=== PATIENT | female | born 1945 | race Two or more races ===

== ENCOUNTER 2022-11-16 21:57 | Inpatient (IN) | payer OTHER ==
[~2022-11-16] VITALS: Ht 152.4 cm; Wt 48.1 kg
[2022-11-16] MEDS ORDERED: SYNTHROID75 MCG PO (22:07)
[2022-11-16] MEDS ORDERED: DILTIAZEM 24HR240 MG PO (22:07)
[2022-11-17 05:04] LABS: HEMATOCRIT 34.5 % (36.0-45.00); HEMOGLOBIN 11.7 g/dL (12.0-15.00); MEAN CELL VOLUME 83.2 fL (80.00-100.00); MEAN CORPUSCULAR HEMOGLOBIN 28.1 pg (27.00-32.0); MEAN CORPUSCULAR HGB CONC 33.8 g/dl (32.0-36.0); PLATELET COUNT 487 K/uL (150-450); RED BLOOD COUNT 4.15 M/uL (4.00-6.00)
[2022-11-17 05:21] LABS: ALBUMIN 3.1 gm/dL (3.4-5.0); BILIRUBIN TOTAL 0.35 mg/dL (0.3-1.2); CALCIUM 8.9 mg/dL (8.5-10.1); CREATININE SERUM 0.39 mg/dL (0.55-1.02); GFR 160.21; GLOBULINA 3.9 G/DL (2.4-3.5); POTASSIUM 3.27 mEq/L (3.5-5.1)
[2022-11-17 06:03] LABS: PH,URINE 6.5 (5.0-8.0); URINE APPEARANCE Clear; URINE BILIRRUBIN Negative (NEGATIVE); URINE BLOOD Negative; URINE COLOR Yellow; URINE GLUCOSE Negative (NEGATIVE); URINE LEUKOCYTE Small; URINE NITRATE Negative; URINE PROTEIN 30 (NEGATIVE)
[2022-11-17 06:08] LABS: URINE BACTERIA 105.1 uL (0.0-1933); URINE EPITHELIAL CELLS 29.1 uL (0.0-38.8); URINE RBC 6.9 uL (0.0-20.8); URINE WBC 53.2 uL (0.0-23.2)
[2022-11-17 07:03] LABS: URINE CRYSTALS NEGATIVE /HPF
[2022-11-17 07:54] LABS: ABG PH 7.433 (7.35-7.45); ABG PO2 70.7 mmHg (80-100); ABG pCO2 44.9 mmHg (35-45); BASE EXCESS 4.4 mmol/l; BICARBONATE 29.4 mmol/l (23-25); SaO2 94.7 %; Tco2 30.8 mmol/l; allen test SATISFACTORY; puncture site RADIAL LEFT
[2022-11-17 07:55] LABS: o2 28 %
[2022-11-17 10:24] LABS: PARTIAL THROMBOPLASTIN TIME 29.1 SECONDS (22.0-34.0); PROTHROMBIN TIME 10.5 SECONDS (9.0-11.5)
[2022-11-17 12:22] LABS: ABG PH 7.429 (7.35-7.45); ABG PO2 86.1 mmHg (80-100); ABG pCO2 44.3 mmHg (35-45); BASE EXCESS 3.7 mmol/l; BICARBONATE 28.7 mmol/l (23-25); SaO2 96.9 %; Tco2 30.1 mmol/l; allen test SATISFACTORY; puncture site RADIAL LEFT
[2022-11-17 12:23] LABS: o2 60 %
[2022-11-17 17:49] LABS: ALBUMIN 2.6 gm/dL (3.4-5.0)
[2022-11-17 18:14] LABS: PLEURAL FLUID APPEARANCE HAZY; PLEURAL FLUID COLOR YELLOW
[2022-11-17 18:51] LABS: ABG PH 7.451 (7.35-7.45); ABG PO2 73.3 mmHg (80-100); ABG pCO2 45.9 mmHg (35-45); BASE EXCESS 6.2 mmol/l; BICARBONATE 31.2 mmol/l (23-25); SaO2 95.6 %; Tco2 32.6 mmol/l; allen test SATISFACTORY; o2 60 %; puncture site RADIAL RIGHT
[2022-11-17 19:12] LABS: POLYMORPHONUCLEAR 25 %
[2022-11-17 19:13] LABS: MONONUCLEAR 75 %
[2022-11-18 07:24] LABS: URINE APPEARANCE Clear; URINE BILIRRUBIN Negative (NEGATIVE); URINE BLOOD Moderate; URINE COLOR Yellow; URINE GLUCOSE Negative (NEGATIVE); URINE LEUKOCYTE Large; URINE NITRATE Negative; URINE PROTEIN Trace (NEGATIVE); URINE UROBILINOGEN 0.2 E.U./dl
[2022-11-18 07:31] LABS: URINE BACTERIA 374.7 uL (0.0-1933); URINE EPITHELIAL CELLS 7.5 uL (0.0-38.8); URINE RBC 61.5 uL (0.0-20.8); URINE WBC 266.4 uL (0.0-23.2)
[2022-11-18 07:39] LABS: HEMATOCRIT 35.4 % (36.0-45.00); HEMOGLOBIN 11.8 g/dL (12.0-15.00); MEAN CELL VOLUME 82.7 fL (80.00-100.00); MEAN CORPUSCULAR HEMOGLOBIN 27.6 pg (27.00-32.0); MEAN CORPUSCULAR HGB CONC 33.3 g/dl (32.0-36.0); RED BLOOD COUNT 4.28 M/uL (4.00-6.00); RED CELL DISTRIBUTION WIDTH 13.7 % (11.5-14.5)
[2022-11-18 07:40] LABS: PLATELET COUNT 524 K/uL (150-450)
[2022-11-18 08:05] LABS: ALBUMIN 2.7 gm/dL (3.4-5.0); BILIRUBIN TOTAL 0.51 mg/dL (0.3-1.2); BILIRUBIN,CONJUGATED 0.16 mg/dL (0.0-0.2); BILIRUBIN,UNCONJUGATED 0.35 mg/dL (0.0-0.6); CALCIUM 8.8 mg/dL (8.5-10.1); CHOL HDL RATIO 2.6 (0-5.0); CREATININE SERUM 0.5 mg/dL (0.55-1.02); GFR 120.28; GLOBULINA 2.9 G/DL (2.4-3.5); MAGNESIUM 2.2 mg/dL (1.8-2.4); PHOSPHOROUS 2.9 mg/dL (2.5-4.9); POTASSIUM 3.54 mEq/L (3.5-5.1); T4 FREE 1.42 NG/ML (0.76-1.46); TOTAL PROTEIN 5.6 gm/dL (6.4-8.2); TSH 1.26 uIU/mL (0.358-3.74)
[2022-11-18 08:12] LABS: C-REACTIVE PROTEIN 7.91 MG/DL (0.00-0.29)
[2022-11-18 08:28] LABS: INR 1.03; PARTIAL THROMBOPLASTIN TIME 29.3 SECONDS (22.0-34.0); PROTHROMBIN TIME 10.8 SECONDS (9.0-11.5)
[2022-11-18 08:29] LABS: ERYTHROCYTE SEDIMENTATION RATE 39 mm/hr
[2022-11-18 10:00] LABS: ABG PH 7.445 (7.35-7.45); ABG PO2 65.3 mmHg (80-100); ABG pCO2 43.6 mmHg (35-45); BASE EXCESS 4.6 mmol/l; BICARBONATE 29.3 mmol/l (23-25); SaO2 93.7 %; Tco2 30.6 mmol/l
[2022-11-18 10:01] LABS: allen test SATISFACTORY; o2 100 %; puncture site RADIAL LEFT
[2022-11-18 11:17] LABS: ABG PH 7.446 (7.35-7.45); ABG PO2 72.8 mmHg (80-100); BASE EXCESS 0.6 mmol/l; BICARBONATE 24.3 mmol/l (23-25); SaO2 95.2 %; Tco2 25.4 mmol/l
[2022-11-18 11:18] LABS: allen test SATISFACTORY; o2 36 %; puncture site RADIAL LEFT
[2022-11-18 11:30] LABS: PLATELET ESTIMATE INCREASED (NORMAL)
[2022-11-19 09:11] LABS: PROCALCITONIN 0.097 ng/ml (0.020-0.080)
[2022-11-20 06:53] LABS: HEMATOCRIT 33.8 % (36.0-45.00); HEMOGLOBIN 11.1 g/dL (12.0-15.00); MEAN CELL VOLUME 83.7 fL (80.00-100.00); MEAN CORPUSCULAR HEMOGLOBIN 27.6 pg (27.00-32.0); PLATELET COUNT 428 K/uL (150-450); RED BLOOD COUNT 4.03 M/uL (4.00-6.00); RED CELL DISTRIBUTION WIDTH 14.2 % (11.5-14.5)
[2022-11-20 07:11] LABS: ALBUMIN 2.3 gm/dL (3.4-5.0); BILIRUBIN TOTAL 0.51 mg/dL (0.3-1.2); CALCIUM 7.7 mg/dL (8.5-10.1); CREATININE SERUM 0.4 mg/dL (0.55-1.02); GFR 155.6; GLOBULINA 2.5 G/DL (2.4-3.5); MAGNESIUM 2.2 mg/dL (1.8-2.4); PHOSPHOROUS 2.8 mg/dL (2.5-4.9); POTASSIUM 3.18 mEq/L (3.5-5.1); TOTAL PROTEIN 4.8 gm/dL (6.4-8.2)
[2022-11-20 07:44] LABS: C-REACTIVE PROTEIN 4.41 MG/DL (0.00-0.29)
[2022-11-21 10:45] LABS: CREATININE SERUM 0.51 mg/dL (0.55-1.02); GFR 117.56; MAGNESIUM 2.2 mg/dL (1.8-2.4); POTASSIUM 3.04 mEq/L (3.5-5.1)
[2022-11-22 08:27] LABS: HEMATOCRIT 27.9 % (36.0-45.00); HEMOGLOBIN 9.8 g/dL (12.0-15.00); MEAN CELL VOLUME 82.1 fL (80.00-100.00); MEAN CORPUSCULAR HEMOGLOBIN 28.7 pg (27.00-32.0); PLATELET COUNT 399 K/uL (150-450); RED CELL DISTRIBUTION WIDTH 14.3 % (11.5-14.5)
[2022-11-22 08:34] LABS: ALBUMIN 2.2 gm/dL (3.4-5.0); BILIRUBIN TOTAL 0.24 mg/dL (0.3-1.2); CREATININE SERUM 0.56 mg/dL (0.55-1.02); GFR 105.53; GLOBULINA 2.5 G/DL (2.4-3.5); MAGNESIUM 2.3 mg/dL (1.8-2.4); POTASSIUM 3.75 mEq/L (3.5-5.1); TOTAL PROTEIN 4.7 gm/dL (6.4-8.2)
[2022-11-22 09:00] LABS: ERYTHROCYTE SEDIMENTATION RATE 14 mm/hr
[2022-11-23 06:31] LABS: HEMATOCRIT 31.2 % (36.0-45.00); HEMOGLOBIN 10.4 g/dL (12.0-15.00); MEAN CELL VOLUME 83.8 fL (80.00-100.00); MEAN CORPUSCULAR HGB CONC 33.4 g/dl (32.0-36.0); PLATELET COUNT 399 K/uL (150-450); RED BLOOD COUNT 3.72 M/uL (4.00-6.00); RED CELL DISTRIBUTION WIDTH 13.9 % (11.5-14.5)
[2022-11-23 23:11] LABS: PH,URINE 7.5 (5.0-8.0); URINE APPEARANCE Clear; URINE BILIRRUBIN Negative (NEGATIVE); URINE BLOOD Negative; URINE COLOR Yellow; URINE GLUCOSE Negative (NEGATIVE); URINE LEUKOCYTE Negative; URINE NITRATE Negative; URINE PROTEIN Negative (NEGATIVE); URINE UROBILINOGEN 0.2 E.U./dl
[2022-11-23 23:24] LABS: URINE BACTERIA 8.4 uL (0.0-1933)
[2022-11-23 23:26] LABS: URINE EPITHELIAL CELLS 0.7 uL (0.0-38.8); URINE RBC 0.7 uL (0.0-20.8)
[2022-11-24 07:20] LABS: CALCIUM 7.8 mg/dL (8.5-10.1); CREATININE SERUM 0.42 mg/dL (0.55-1.02); GFR 147.08; POTASSIUM 3.03 mEq/L (3.5-5.1)
[2022-11-25 08:24] LABS: CALCIUM 7.9 mg/dL (8.5-10.1); CREATININE SERUM 0.35 mg/dL (0.55-1.02); GFR 181.53; MAGNESIUM 2.3 mg/dL (1.8-2.4); PHOSPHOROUS 2.1 mg/dL (2.5-4.9); POTASSIUM 3.62 mEq/L (3.5-5.1)
[2022-11-25 09:14] LABS: HEMATOCRIT 31.8 % (36.0-45.00); HEMOGLOBIN 10.6 g/dL (12.0-15.00); MEAN CORPUSCULAR HEMOGLOBIN 28.1 pg (27.00-32.0); MEAN CORPUSCULAR HGB CONC 33.4 g/dl (32.0-36.0); PLATELET COUNT 391 K/uL (150-450); RED BLOOD COUNT 3.79 M/uL (4.00-6.00); RED CELL DISTRIBUTION WIDTH 14.1 % (11.5-14.5)
[2022-11-25 09:47] LABS: INR 0.98; PARTIAL THROMBOPLASTIN TIME 31.7 SECONDS (22.0-34.0); PROTHROMBIN TIME 10.3 SECONDS (9.0-11.5)
[2022-11-26 06:50] LABS: HEMATOCRIT 30.6 % (36.0-45.00); HEMOGLOBIN 10.1 g/dL (12.0-15.00); MEAN CELL VOLUME 84.3 fL (80.00-100.00); MEAN CORPUSCULAR HEMOGLOBIN 27.9 pg (27.00-32.0); MEAN CORPUSCULAR HGB CONC 33.1 g/dl (32.0-36.0); PLATELET COUNT 371 K/uL (150-450); RED BLOOD COUNT 3.63 M/uL (4.00-6.00); RED CELL DISTRIBUTION WIDTH 14.2 % (11.5-14.5)
[2022-11-26 07:26] LABS: CALCIUM 8.1 mg/dL (8.5-10.1); CREATININE SERUM 0.37 mg/dL (0.55-1.02); GFR 170.25; MAGNESIUM 2.4 mg/dL (1.8-2.4); POTASSIUM 3.48 mEq/L (3.5-5.1)
[2022-11-29 09:18] LABS: HEMATOCRIT 32.2 % (36.0-45.00); HEMOGLOBIN 10.4 g/dL (12.0-15.00); MEAN CELL VOLUME 84.4 fL (80.00-100.00); MEAN CORPUSCULAR HEMOGLOBIN 27.2 pg (27.00-32.0); MEAN CORPUSCULAR HGB CONC 32.2 g/dl (32.0-36.0); PLATELET COUNT 356 K/uL (150-450); RED BLOOD COUNT 3.82 M/uL (4.00-6.00); RED CELL DISTRIBUTION WIDTH 14.2 % (11.5-14.5)
[2022-11-29 09:53] LABS: CALCIUM 8.1 mg/dL (8.5-10.1); CREATININE SERUM 0.39 mg/dL (0.55-1.02); GFR 160.21; POTASSIUM 4.33 mEq/L (3.5-5.1)
[2022-12-02 14:23] LABS: INR 1.04; PROTHROMBIN TIME 10.9 SECONDS (9.0-11.5)
[2022-12-02 14:35] LABS: PARTIAL THROMBOPLASTIN TIME 38.8 SECONDS (22.0-34.0)
[2022-12-04 06:31] LABS: HEMATOCRIT 28.3 % (36.0-45.00); HEMOGLOBIN 9.8 g/dL (12.0-15.00); MEAN CELL VOLUME 83.1 fL (80.00-100.00); MEAN CORPUSCULAR HEMOGLOBIN 28.7 pg (27.00-32.0); MEAN CORPUSCULAR HGB CONC 34.5 g/dl (32.0-36.0); PLATELET COUNT 321 K/uL (150-450); RED BLOOD COUNT 3.41 M/uL (4.00-6.00); RED CELL DISTRIBUTION WIDTH 14.4 % (11.5-14.5)
[2022-12-04 06:49] LABS: ALBUMIN 1.9 gm/dL (3.4-5.0); BILIRUBIN TOTAL 0.22 mg/dL (0.3-1.2); CALCIUM 7.8 mg/dL (8.5-10.1); GFR 225.52; MAGNESIUM 2.1 mg/dL (1.8-2.4); POTASSIUM 3.75 mEq/L (3.5-5.1); TOTAL PROTEIN 4.9 gm/dL (6.4-8.2)
[2022-12-04 06:50] LABS: CREATININE SERUM 0.29 mg/dL (0.55-1.02)
[2022-12-04 09:29] LABS: ABG PH 7.437 (7.35-7.45); ABG pCO2 44.3 mmHg (35-45)
[2022-12-04 09:30] LABS: ABG PO2 57.5 mmHg (80-100); BASE EXCESS 4.4 mmol/l; BICARBONATE 29.2 mmol/l (23-25); SaO2 90.9 %; Tco2 30.6 mmol/l; allen test SATISFACTORY; o2 21 %; puncture site RADIAL LEFT
[2022-12-07] MEDS ORDERED: RISPERDAL0.5 MG PO (16:30)
[2022-12-07] MEDS ORDERED: CARTIA XT240 MG PO (16:30)
[2022-12-07] MEDS ORDERED: LISINOPRIL20 MG PO (16:30)
[2022-12-07] MEDS ORDERED: BENZONATATE100 MG PO (16:30)
[2022-12-07] MEDS ORDERED: TUSSIN DM LIQU118 ML PO (16:31)
[2022-12-07] MEDS ORDERED: PANTOPRAZOLE SO40 MG PO (16:32)
[2022-12-07] MEDS ORDERED: Neurin-Sl Tablet Sl SL (16:32)
[2022-12-07] MEDS ORDERED: LEVOTHYROXINE75 MCG PO (16:32)
[2022-12-07] MEDS ORDERED: B Complex PO (16:33)
[2022-12-07] MEDS ORDERED: POM (MEDICAMENTO EN PO (16:33)
== END 2022-12-07 22:24 | disposition home or self-care (01) | DRG 180 ==
LOC: ER 21:57 → ICU-2 11-17 17:27 → ICU 11-17 17:27 → MEDJ 11-17 17:27 → ICU 11-17 20:52 → MEDJ 11-27 19:42
PROVIDERS: Emergency Medicine; Internal Medicine; Internal Medicine Critical Care Medicine; Internal Medicine Infectious Disease; Radiology Vascular & Interventional Radiology; ADMIT Internal Medicine; ATTEND Internal Medicine
PROC: BW21YZZ Computerized Tomography (CT Scan) of Abdomen and Pelvis using Other Contrast (ICD-10-PCS; 2022-11-17)
PROC: BW24ZZZ Computerized Tomography (CT Scan) of Chest and Abdomen (ICD-10-PCS; 2022-11-17)
PROC: B24BZZZ Ultrasonography of Heart with Aorta (ICD-10-PCS; 2022-11-17)
PROC: 02HV33Z Insertion of Infusion Device into Superior Vena Cava, Percutaneous Approach (ICD-10-PCS; 2022-11-18)
PROC: B54PZZZ Ultrasonography of Bilateral Upper Extremity Veins (ICD-10-PCS; 2022-11-19)
PROC: BW21YZZ Computerized Tomography (CT Scan) of Abdomen and Pelvis using Other Contrast (ICD-10-PCS; 2022-11-20)
PROC: BW24YZZ Computerized Tomography (CT Scan) of Chest and Abdomen using Other Contrast (ICD-10-PCS; 2022-11-20)
PROC: BW28YZZ Computerized Tomography (CT Scan) of Head using Other Contrast (ICD-10-PCS; 2022-11-20)
PROC: 0WHB33Z Insertion of Infusion Device into Left Pleural Cavity, Percutaneous Approach (ICD-10-PCS; 2022-11-25)
PROC: BW24ZZZ Computerized Tomography (CT Scan) of Chest and Abdomen (ICD-10-PCS; 2022-11-25)
PROC: 0W993ZZ Drainage of Right Pleural Cavity, Percutaneous Approach (ICD-10-PCS; 2022-11-27)
PROC: 4A12X4Z Monitoring of Cardiac Electrical Activity, External Approach (ICD-10-PCS; 2022-11-27)
PROC: 05H633Z Insertion of Infusion Device into Left Subclavian Vein, Percutaneous Approach (ICD-10-PCS; 2022-11-30)
PROC: BR3CYZZ Magnetic Resonance Imaging (MRI) of Pelvis using Other Contrast (ICD-10-PCS; 2022-11-30)
PROC: 0WHB33Z Insertion of Infusion Device into Left Pleural Cavity, Percutaneous Approach (ICD-10-PCS; principal; 2022-12-03 20:00)
PROC: BW24YZZ Computerized Tomography (CT Scan) of Chest and Abdomen using Other Contrast (ICD-10-PCS; 2022-12-04)
DX: C34.91 Malignant neoplasm of unspecified part of right bronchus or lung (principal); J96.01 Acute respiratory failure with hypoxia; J94.8 Other specified pleural conditions; J91.0 Malignant pleural effusion; E87.1 Hypo-osmolality and hyponatremia; D62 Acute posthemorrhagic anemia; I10 Essential (primary) hypertension; E03.9 Hypothyroidism, unspecified; D63.0 Anemia in neoplastic disease; D25.9 Leiomyoma of uterus, unspecified; I80.8 Phlebitis and thrombophlebitis of other sites
CPT/HCPCS: 71275; 72198

== ENCOUNTER 2023-01-28 14:28 | Outpatient (CLI) | payer OTHER ==
[~2023-01-28 14:28] MED LIST: B Complex PO; BENZONATATE100 MG PO; CARTIA XT240 MG PO; DILTIAZEM 24HR240 MG PO; LEVOTHYROXINE75 MCG PO; LISINOPRIL20 MG PO; Neurin-Sl Tablet Sl SL; PANTOPRAZOLE SO40 MG PO; POM (MEDICAMENTO EN PO; RISPERDAL0.5 MG PO; SYNTHROID75 MCG PO; TUSSIN DM LIQU118 ML PO
== END 2023-01-28 14:50 | disposition home or self-care (01) ==
LOC: TOM 14:28
PROVIDERS: ATTEND Internal Medicine
DX: J91.0 Malignant pleural effusion (principal)

== ENCOUNTER 2023-02-08 09:19 | Inpatient (IN) | payer OTHER ==
[~2023-02-08] VITALS: Ht 162.6 cm; Wt 47.6 kg
[2023-02-08 11:05] LABS: ABG PH 7.483 (7.35-7.45)
[2023-02-08 11:06] LABS: ABG PO2 61.1 mmHg (80-100); ABG pCO2 38.6 mmHg (35-45); BASE EXCESS 4.6 mmol/l; BICARBONATE 28.3 mmol/l (23-25); Tco2 29.5 mmol/l
[2023-02-08 11:07] LABS: allen test SATISFACTORY; o2 21 %; puncture site RADIAL LEFT
[2023-02-08 11:08] LABS: SaO2 93.2 %
[2023-02-08 11:10] LABS: HEMATOCRIT 38.1 % (36.0-45.00); HEMOGLOBIN 12.8 g/dL (12.0-15.00); MEAN CELL VOLUME 85.4 fL (80.00-100.00); MEAN CORPUSCULAR HEMOGLOBIN 28.7 pg (27.00-32.0); MEAN CORPUSCULAR HGB CONC 33.7 g/dl (32.0-36.0); PLATELET COUNT 437 K/uL (150-450); RED BLOOD COUNT 4.46 M/uL (4.00-6.00); RED CELL DISTRIBUTION WIDTH 16.5 % (11.5-14.5)
[2023-02-08 11:40] LABS: CALCIUM 9.1 mg/dL (8.5-10.1); CREATININE SERUM 0.52 mg/dL (0.55-1.02); GFR 114.65; POTASSIUM 3.95 mEq/L (3.5-5.1)
[2023-02-08 13:38] LABS: URINE APPEARANCE Clear; URINE BILIRRUBIN Negative (NEGATIVE); URINE BLOOD Negative; URINE COLOR Yellow; URINE GLUCOSE Negative (NEGATIVE); URINE LEUKOCYTE Trace; URINE NITRATE Negative; URINE PROTEIN Negative (NEGATIVE); URINE UROBILINOGEN 0.2 E.U./dl
[2023-02-08 13:39] LABS: URINE BACTERIA 41.5 uL (0.0-1933); URINE EPITHELIAL CELLS 15.2 uL (0.0-38.8); URINE RBC 3.1 uL (0.0-20.8); URINE WBC 13.5 uL (0.0-23.2)
[2023-02-08 21:24] LABS: INR 0.99; PARTIAL THROMBOPLASTIN TIME 29.9 SECONDS (22.0-34.0); PROTHROMBIN TIME 10.4 SECONDS (9.0-11.5)
[2023-02-09 20:42] LABS: TP PLEURAL FLUID 4.6 g/dl
[2023-02-09 22:34] LABS: PLEURAL FLUID APPEARANCE HAZY; PLEURAL FLUID COLOR YELLOW; POLYMORPHONUCLEAR 21 %
[2023-02-09 22:35] LABS: MONONUCLEAR 79 %
[2023-02-10 07:36] LABS: HEMOGLOBIN 12.3 g/dL (12.0-15.00); MEAN CELL VOLUME 83.7 fL (80.00-100.00); MEAN CORPUSCULAR HEMOGLOBIN 28.6 pg (27.00-32.0); MEAN CORPUSCULAR HGB CONC 34.2 g/dl (32.0-36.0); PLATELET COUNT 464 K/uL (150-450); RED CELL DISTRIBUTION WIDTH 16.4 % (11.5-14.5)
[2023-02-10 08:32] LABS: ALBUMIN 2.9 gm/dL (3.4-5.0); BILIRUBIN TOTAL 0.33 mg/dL (0.3-1.2); CREATININE SERUM 0.7 mg/dL (0.55-1.02); GFR 81.36; GLOBULINA 3.2 G/DL (2.4-3.5); MAGNESIUM 2.2 mg/dL (1.8-2.4); PHOSPHOROUS 4.1 mg/dL (2.5-4.9); POTASSIUM 3.32 mEq/L (3.5-5.1); TOTAL PROTEIN 6.1 gm/dL (6.4-8.2)
== END 2023-02-10 15:49 | disposition home or self-care (01) | DRG 187 ==
LOC: ER → MEDJ 20:47
PROVIDERS: Emergency Medicine; General Practice; Radiology Vascular & Interventional Radiology; ADMIT Internal Medicine; ATTEND Internal Medicine
PROC: BB24ZZZ Computerized Tomography (CT Scan) of Bilateral Lungs (ICD-10-PCS; 2023-02-08)
PROC: B246ZZZ Ultrasonography of Right and Left Heart (ICD-10-PCS; 2023-02-08)
PROC: 0W993ZZ Drainage of Right Pleural Cavity, Percutaneous Approach (ICD-10-PCS; principal; 2023-02-09)
DX: J90 Pleural effusion, not elsewhere classified (principal); C56.2 Malignant neoplasm of left ovary; I10 Essential (primary) hypertension; E03.8 Other specified hypothyroidism

== ENCOUNTER 2023-02-15 10:03 | Outpatient (CLI) | payer OTHER | END 2023-02-15 10:05 | disposition home or self-care (01) | LOC: RAD 10:03 | PROVIDERS: ATTEND Internal Medicine | DX: J91.0 Malignant pleural effusion (principal); Z88.6 Allergy status to analgesic agent ==